=== PATIENT | male | born 2000 | race Caucasian/White ===

== ENCOUNTER 2021-08-04 06:43 | Emergency (ER) | payer OTHER ==
[~2021-08-04] VITALS: Ht 172.7 cm; Wt 94.8 kg
[2021-08-04 06:51] VITALS: BP 150/79
--- NOTE | 2021-08-04 06:57 | NUR ---
PT AMBULATED TO BED 11
--- NOTE | 2021-08-04 06:59 | NUR ---
20 Y/O MALE BIB FAMILY FROM HOME, C/O ABD PAIN W/ VOMITING X1 DAY. PT STATES THE PAIN IS LOCATED IN THE LEFT MID ABDOMEN, COMES/GOES, 4/10 "PRESSURE." PT STATES HE HAS THROWN UP X3 SINCE YESTERDAY, NO BLOOD IN VOMIT; DENIES DIARRHEA OR CONSTIPATION; PT CLAIMS HE IS SHORT OF BREATH AND PAINFUL WHEN TAKING A FULL BREATH, SPEAKING IN FULL SENTENCES, UNLABORED BREATHING, NO ACCESSORY MUSCLE USE. PT IS AMBULATORY W/O ASSISTANCE. PT IS SITTING IN BED W/ HOB RAISED, BED IN LOWEST SETTING, AND RAIL UP X1. HX: CHILDHOOD ASTHMA NKA DENIES MEDS
--- NOTE | 2021-08-04 07:13 | NUR ---
DR URIARTE AT BEDSIDE EVALUATING PT
--- NOTE | 2021-08-04 07:15 | NUR ---
RECIEVED REPORT ON PT FROM ANK[facility]
[2021-08-04] MEDS ORDERED: DICYCLOMINE HCL LIQUID 20 MG, ALUMINUM HYD/MAG/SIMETHICONE 30 ML, LIDOCAINE VISCOUS 2% ... PO ONE ×3 (07:20)
[2021-08-04] MEDS ORDERED: ONDANSETRON 4 MG ODT PO ONE (07:20)
[2021-08-04] MEDS ORDERED: DICYCLOMINE HCL LIQUID 10 MG/5 ML UDC ONE (07:23)
[2021-08-04] MEDS ORDERED: ALUMINUM HYD/MAG/SIMETHICONE 30 ML UDC ONE (07:23)
[2021-08-04] MEDS ORDERED: MAG-27 PO (08:05)
[2021-08-04] MEDS ORDERED: ONDA-188 PO (08:05)
[2021-08-04 08:15] VITALS: BP 126/52
--- NOTE | 2021-08-04 08:16 | NUR ---
Patient discharged with v/s stable. Written and verbal after care instructions given and explained. Patient alert, oriented and verbalized understanding of instructions. Ambulatory with steady gait. All questions addressed prior to discharge. ID band removed. Patient advised to follow up with PMD. Rx of ZOFRAN AND MYLANTA given. Patient educated on indication of medication including possible reaction and side effects. Opportunity to ask questions provided and answered.WORK NOTE GIVEN
== END 2021-08-04 08:16 | disposition home or self-care (01) ==
LOC: MED 06:43
DX: R11.2 Nausea with vomiting, unspecified (principal); R10.12 Left upper quadrant pain; J45.909 Unspecified asthma, uncomplicated; F17.210 Nicotine dependence, cigarettes, uncomplicated; Z79.899 Other long term (current) drug therapy
CPT/HCPCS: 99283; Q0162